=== PATIENT | female | born 2000 | race African-American/Black ===

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

== ENCOUNTER 2022-06-01 09:43 | Emergency (ER) | payer OTHER ==
--- OUTSIDE RECORDS SUMMARY | 2022-06-01 09:46 | XMS REPORT | Continuity of Care Document ---
:2000 Author Organization [facility] t Address [address] [place] [address] Care Team Providers Name Role Phone Jesica Payne PA-C Primary Care Physician [phone] Bette TURBINE ENGINEER, Lesly Ojeda Attending Clinician Payers Payer Name Policy Type Policy Number Effective Date Expiration Date S ource [place]ICA[place] [id number] 2019 00:00:00 Problems Condition Condition Condition Status Onset Resolution Last Treating Co mments Source Name Details Category Date Date Treatment Clinician Date Inhalation Inhalation Disease Active U nivers injury injury 9- ity of 00:00: [address] Pneumonia Pneumonia Disease Active Uni vers 03-25 ity of 00:00: [address] Allergies, Adverse Reactions, Alerts Allergy Allergy Status Severity Reaction(s) Onset Inactive Treating Comm ents Source Name Type Date Date Clinician NO KNOWN Drug Active Univers ALLERGIE Class ity of S [facility] Social History Social Habit Start Date Stop Date Quantity Comments Source Exposure to Not sure University of SARS-CoV-2 [facility] (event) [place] Tobacco use and 2021-03-15 2021-03-15 Current user Univers ity of exposure 00:00:00 00:00:00 [facility] Tobacco Comment 2019-03-25 2019-03-25 patient has vaped Un iversity of 00:00:00 00:00:00 discussed dangers [facility] Sex Assigned At [birth year] Universit y of 00:00:00 00:00:00 [facility] Smoking Status Start Date Stop Date Source Unknown if ever smoked Universit y of [facility] Medications Ordered Filled Start Stop Current Ordering Indication Dosage Frequency Signature Comments Components Source Medication Medication Date Date Medication? Clinician (SIG) Name Name prednisoLON 2018-07- No [id number] Take 3 Univers E 5 mg 0-03 09-05 tablets by [place] tablet [place] 04/11/19, Branch Take 2 tablets by mouth once daily on 04/12/19, Take 1 tablet by mouth once daily on 04/13/19 prednisoLON 2018-07- No [id number] Take 3 Univers E 5 mg 0-03 09-05 tablets by [place] tablet [place] 04/11/19, Branch Take 2 tablets by mouth once daily on 04/12/19, Take 1 tablet by mouth once daily on 04/13/19 predniSONE 2020- No [id number] 30mg Take 3 Univers 10 mg 04-06 09-05 tablets by ity of tablet 00:00: 00:00 mouth [place] 00 :00 daily. Medical From [place] 04/06/19 to 04/10/19 predniSONE 2020- No [id number] 30mg Take 3 Univers 10 mg 04-06 09-05 tablets by ity of tablet 00:00: 00:00 mouth [place] 00 :00 daily. Medical From [place] 04/06/19 to 04/10/19 albuterol Yes [id number] 2{puff} Inhale 2 Univers (PROAIR 9-24 Puffs ity of HFA) 90 00:00: every 6 [place] mcg/actuati 00 (six) Medical on inhaler hours as Branc h needed for Wheezing or Shortness of Breath. albuterol Yes [id number] 2{puff} Inhale 2 Univers (PROAIR 9-24 Puffs ity of HFA) 90 00:00: every 6 [place] mcg/actuati 00 (six) Medical on inhaler hours as Branc h needed for Wheezing or Shortness of Breath. predniSONE 2020- No [id number] 40mg Take 2 Univers 20 mg 9 09-05 tablets by ity of tablet 00:00: 00:00 mouth [place] 00 :00 daily. Medical From [place] 04/01/19 to 04/05/19 predniSONE 2018-2020- No [id number] 40mg Take 2 Univers 20 mg 04-01-05 tablets by ity of tablet 00:00: 00:00 mouth [place] 00 :00 daily. Medical From Branch 04/01/19 to 04/05/19 cefdinir 2018-2020- No [id number] 600mg Take 2 Univers 300 mg 03-31-05 capsules ity of capsule 00:00: 00:00 by mouth [place] 00 :00 every 24 Medical ([facility] Branch ur) hours. azithromyci 2018-2020- No [id number] 250mg Take 1 Univers n 250 mg 03-31-05 tablet by ity o f tablet 00:00: 00:00 mouth [place] 00 :00 every 24 Medical ([facility] Branch ur) hours. famotidine 2018-2020- No [id number] 20mg Take 1 Univers 20 mg -31 03-05 tablet by ity of tablet 00:00: 00:00 mouth 2 [place] 00 :00 (two) Medical times Branch daily. cefdinir 2020- No [id number] 600mg Take 2 Univers 300 mg 03-31-05 capsules ity of capsule 00:00: 00:00 by mouth [place] 00 :00 every 24 Medical ([facility] Branch ur) hours. azithromyci 2020- No [id number] 250mg Take 1 Univers n 250 mg 03-31-05 tablet by ity o f tablet 00:00: 00:00 mouth [place] 00 :00 every 24 Medical ([facility] Branch ur) hours. famotidine 2020- No [id number] 20mg Take 1 Univers 20 mg -21 -05 tablet by ity of tablet 00:00: 00:00 mouth 2 [place] 00 :00 (two) Medical times Branch daily. Immunizations Ordered Filled Immunization Date Status Comments [facility] e Immunization Name Name Pneumococcal 7 2003-09-06 Completed University of Conjugate, PCV7 00:00:00 [place] [facility] ical (Prevnar7) Branch Pneumococcal 7 2003-09-06 Completed University of Conjugate, PCV7 00:00:00 [place] Med ical (Prevnar7) Branch Vital Signs Vital Name Observation Time Observation Value Comments Source Systolic blood 2021-03-15 17:40:00 122 mm[Hg] Univer sity of pressure [facility] Diastolic blood 2021-03-15 17:40:00 79 mm[Hg] Unive rsity of pressure [facility] Heart rate 2021-03-15 17:40:00 66 /min [facility] Respiratory rate 2021-03-15 17:40:00 18 /min [facility] saturation in 2021-03-15 17:40:00 98 /min [facility] Arterial blood by [facility] Pulse oximetry Branch Body temperature 2021-03-15 15:58:00 37.33 Nancy [facility] Body weight 2021-03-15 15:58:00 120.203 kg [facility] Procedures Procedure Date / Time Performed Performing Clinician [facility] e NOTICE OF PRIVACY 2021-03-15 15:58:56 Doctor Unassigned, No Univ [facility] PRACTICES Name Medical Branch CONSENT/REFUSAL FOR 2021-03-15 15:49:31 Doctor Unassigned, [facility] AND Name Medical Branch TREATMENT Encounters Start End Encounter Admission Attending Care Care Encounter Source Date/Time Date/Time Type Type Clinicians Facility Department ID 2021-05-11 Emergency [facility] [id number] Univers 20:33:12 ity of [facility] 2021-03-15 2021-03-15 Emergency [facility] [id number] Univers 11:00:00 13:20:00 Lesly Graham [id number] [place] [id number] [facility] [id number] [facility] 084 Branch Results This patient has no known results.
[2022-06-01] MEDS ORDERED: ALBUTEROL 2.5 MG/3 ML NEB SOL ONE (09:55)
[2022-06-01] MEDS ORDERED: IPRATROPIUM BROM 0.5MG/2.5ML ONE (09:55)
[2022-06-01 10:42] LABS: SARS-COV-2 RT PCR NEGATIVE (NEGATIVE)
--- NOTE | 2022-06-01 11:02 | RAD REPORT ---
EXAM DESCRIPTION: Orly Lennon (2 Views)06/01/2022 10:16 am CLINICAL HISTORY: Cough COMPARISON: None FINDINGS: The lungs appear clear of acute infiltrate. The heart is normal size IMPRESSION: No acute abnormalities displayed
--- NOTE | 2022-06-01 11:19 | ER ---
Nurse's Notes [facility] Name: Saida Vo Age: 21 yrs Sex: Female : 2000 Arrival Date: 06/01/2022 Time: 09:46 Bed 11 Private MD: Diagnosis: Acute bronchitis, unspecified Presentation: 06/01 10:08 Chief complaint: Patient states: 2 days of fever, cough, congestion, no taste or smell, iw + body aches. Coronavirus screen: Client presents with at least one sign or symptom that may indicate coronavirus-19. Ebola Screen: Patient negative for fever greater than or equal to 101.5 degrees Fahrenheit, and additional compatible Ebola Virus Disease symptoms Patient denies exposure to infectious person. Patient denies travel to an Ebola-affected area in the 21 days before illness onset. No symptoms or risks identified at this time. Initial Sepsis Screen: Does the patient meet any 2 criteria? No. Patient's initial sepsis screen is negative. Does the patient have a suspected source of infection? No. Patient's initial sepsis screen is negative. Risk Assessment: Do you want to hurt yourself or someone else? Patient reports no desire to harm self or others. Onset of symptoms was May 30, 2022. 10:08 Method Of Arrival: Ambulatory iw 10:08 Acuity: YESENIA 4 iw Historical: - Allergies: 10:10 No Known Allergies; iw - PMHx: 10:10 Asthma; iw Vital Signs: 10:08 BP 130 / 94; Pulse 89; Resp 16; Temp 97.1; Pulse Ox 99% on R/A; Weight 94.35 kg; Height iw 5 ft. 1 in. (154.94 cm); 10:08 Body Mass Index 39.30 (94.35 kg, 154.94 cm) iw ED Course: 09:46 Patient arrived in ED. as 09:46 [facility] kb 09:46 Teja Houston MD is Attending Physician. kb 09:53 Nancy Thurman, RN is Primary Nurse. iw 10:00 COVID-19/FLU A+B Sent. iw 10:10 Triage completed. iw 10:10 Arm band placed on. iw 10:18 Chest Pa And Lat (2 Views) XRAY In Process Unspecified. EDMS Administered Medications: 10:22 Drug: DuoNeb (albuterol 2.5 mg, ipratropium 0.5 mg) (3:1) (2.5 mg - 0.5 mg) 3 ml Route: iw Nebulizer; 11:37 Drug: predniSONE 40 mg Route: PO; iw Outcome: 11:19 Discharge ordered by MD. jackson 11:37 Patient left the ED. iw Signatures: Dispatcher [employer] EDMS Sanna Asif, Guillermina Garcia Irene, RN RN iw
--- NOTE | 2022-06-01 11:19 | EDPHYS ---
Physician Documentation [facility] Name: Saida Vo Age: 21 yrs Sex: Female : 2000 Arrival Date: 06/01/2022 Time: 09:46 Bed 11 Private MD: ED Physician Teja Houston HPI: 06/01 11:18 This 21 yrs old Black Female presents to ER via Ambulatory with complaints of Flu kb Symptoms. 11:18 The patient or guardian reports cough, that is intermittent, described as mild, flu kb symptoms, low-grade fever, myalgias. Onset: The symptoms/episode began/occurred 2 day(s) ago. Severity of symptoms: At their worst the symptoms were moderate, in the emergency department the symptoms are unchanged. Modifying factors: The symptoms are alleviated by nothing, the symptoms are aggravated by nothing. Associated signs and symptoms: Pertinent positives: fever, rhinorrhea. The patient has experienced similar episodes in the past, a few times. The patient has not recently seen a physician. Historical: - Allergies: 10:10 No Known Allergies; iw - PMHx: 10:10 Asthma; iw ROS: 11:18 Abdomen/GI: Negative for abdominal pain, nausea, vomiting, diarrhea, and constipation. kb 11:18 Constitutional: Positive for body aches, chills, fever, malaise. 11:18 ENT: Positive for rhinorrhea, sinus congestion. 11:18 Respiratory: Positive for cough. 11:18 All other systems are negative. Exam: 11:18 Constitutional: This is a well developed, well nourished patient who is awake, alert, kb and in no acute distress. Head/Face: Normocephalic, atraumatic. ENT: Moist Mucous membranes Cardiovascular: Regular rate and rhythm with a normal S1 and S2. No gallops, murmurs, or rubs. No pulse deficits. Abdomen/GI: Soft, non-tender. No distention Skin: Warm, dry with normal turgor. Normal color. MS/ Extremity: Pulses equal, no cyanosis. Neurovascular intact. Full, normal range of motion. Neuro: Awake and alert, GCS 15, oriented to person, place, time, and situation. Moves all extremities. Normal gait. 11:18 Respiratory: the patient does not display signs of respiratory distress, Respirations: normal, Breath sounds: wheezing: expiratory that is mild, is heard in the right posterior middle lobe and right posterior lower lobe. Vital Signs: 10:08 BP 130 / 94; Pulse 89; Resp 16; Temp 97.1; Pulse Ox 99% on R/A; Weight 94.35 kg; Height iw 5 ft. 1 in. (154.94 cm); 10:08 Body Mass Index 39.30 (94.35 kg, 154.94 cm) iw MDM: 09:52 Patient medically screened. kb 11:04 Data reviewed: vital signs, nurses notes. Data interpreted: Pulse oximetry: on room air kb is 99 %. Interpretation: normal. Counseling: I had a detailed discussion with the patient and/or guardian regarding: the historical points, exam findings, and any diagnostic results supporting the discharge/admit diagnosis, lab results, radiology results, the need for outpatient follow up, a family practitioner, to return to the emergency department if symptoms worsen or persist or if there are any questions or concerns that arise at home. 06/01 09:52 Order name: COVID-19/FLU A+B; Complete Time: 10:48 kb 06/01 09:52 Order name: Chest Pa And Lat (2 Views) XRAY; Complete Time: 11:03 kb Administered Medications: 10:22 Drug: DuoNeb (albuterol 2.5 mg, ipratropium 0.5 mg) (3:1) (2.5 mg - 0.5 mg) 3 ml Route: iw Nebulizer; 11:37 Drug: predniSONE 40 mg Route: PO; iw Disposition: 16:54 Co-signature as Attending Physician, Teja Houston MD I agree with the assessment and rt plan of care. Disposition Summary: 06/01/22 11:19 Discharge Ordered Location: Home kb Condition: Stable kb Diagnosis - Acute bronchitis, unspecified kb Followup: kb - With: Emergency Department - When: As needed - Reason: Worsening of condition Followup: kb - With: Private Physician - When: 2 - 3 days - Reason: Recheck today's complaints, Continuance of care, Re-evaluation by your physician Discharge Instructions: - Discharge Summary Sheet kb - Acute Bronchitis, Adult, [id number] kb Forms: - Medication Reconciliation Form kb - Work release form kb - Thank You Letter kb - Antibiotic Education kb - Prescription Opioid Use kb Prescriptions: - albuterol sulfate 90 mcg/actuation Inhalation HFA aerosol inhaler - inhale 2 puff by INHALATION route every 4-6 hours As needed; 1 Inhaler; kb Refills: 0, Product Selection Permitted - Prednisone 20 mg Oral Tablet - take 1 tablet by ORAL route once daily for 5 days; 5 tablet; Refills: 0, kb Product Selection Permitted Signatures: Dispatcher [employer] Sanna Rosado, Nancy Blake RN RN Teja Quevedo MD MD rt
[2022-06-01] MEDS ORDERED: predniSONE 20 MG TAB ONE (11:30)
[2022-06-01 12:09] VITALS: BP 130/94; TEMP 97.1; O2SAT 99
== END 2022-06-01 11:37 | disposition home or self-care (01) ==
LOC: ER 09:43
DX: J20.9 Acute bronchitis, unspecified (principal); Z20.822 Contact with and (suspected) exposure to COVID-19
CPT/HCPCS: 0240U; 71046; 94640; 99284; J7512; J7613; J7644

== ENCOUNTER 2022-09-22 10:32 | Emergency (ER) | payer OTHER ==
--- OUTSIDE RECORDS SUMMARY | 2022-09-22 10:37 | XMS REPORT | Continuity of Care Document ---
:2000 Author Organization [facility] t Address [address] [place] [address] Care Team Providers Name Role Phone Jesica Payne PA-C Primary Care Physician [phone] Lesly Amos NP Attending Clinician Payers Payer Name Policy Type Policy Number Effective Date Expiration Date S ource [place] [id number] 2019 00:00:00 Problems Condition Condition Condition Status Onset Resolution Last Treating Co mments Source Name Details Category Date Date Treatment Clinician Date Inhalation Inhalation Disease Active 2018- U nivers injury injury 9-19 ity of 00:00: [address] Pneumonia Pneumonia Disease Active 2019 Uni vers 03-25 ity of 00:00: [address] Allergies, Adverse Reactions, Alerts Allergy Allergy Status Severity Reaction(s) Onset Inactive Treating Comm ents Source Name Type Date Date Clinician NO KNOWN Drug Active Univers ALLERGIE Class ity of S [facility] Social History Social Habit Start Date Stop Date Quantity Comments Source Exposure to Not sure University of SARS-CoV-2 [facility] (event) [place] Tobacco use and 2021-03-15 2021-03-15 Current user Univers ity of exposure 00:00:00 00:00:00 [facility] Tobacco Comment 2019-03-25 2019-03-25 patient has vaped Un iversity of 00:00:00 00:00:00 discussed dangers [facility] Sex Assigned At [birth year] Universit y of 00:00:00 00:00:00 [facility] Smoking Status Start Date Stop Date Source Unknown if ever smoked Universit y of [facility] Medications Ordered Filled Start Stop Current Ordering Indication Dosage Frequency Signature Comments Components Source Medication Medication Date Date Medication? Clinician (SIG) Name Name prednisoLON 2018-07- No [id number] Take 3 Univers E 5 mg 0-03 09-05 tablets [place] tablet [place] 04/11/19, Branch Take 2 tablets by mouth once daily on 04/12/19, Take 1 tablet by mouth once daily on 04/13/19 prednisoLON 2018-07- No [id number] Take 3 Univers E 5 mg 0-03 09-05 tablets by [place] tablet 00:[place] 04/11/19, Branch Take 2 tablets by mouth once daily on 04/12/19, Take 1 tablet by mouth once daily on 04/13/19 predniSONE 2020- No [id number] 30mg Take 3 Univers 10 mg 9- 09-05 tablets by ity of tablet 00:00: 00:00 mouth [place] 00 :00 daily. Medical From [place] 04/06/19 to 04/10/19 predniSONE 2020- No [id number] 30mg Take 3 Univers 10 mg 9- 09-05 tablets by ity of tablet 00:00: 00:00 mouth [place] 00 :00 daily. Medical From [place] 04/06/19 to 04/10/19 albuterol Yes [id number] 2{puff} Inhale 2 Univers (PROAIR 9-24 Puffs ity of HFA) 90 00:00: every 6 [place] mcg/actuati 00 (six) Medical on inhaler hours as Branc h needed for Wheezing or Shortness of Breath. albuterol Yes [id number] 2{puff} Inhale 2 Univers (PROAIR 9-24 Puffs ity of HFA) 90 00:00: every 6 [place] mcg/actuati 00 (six) Medical on inhaler hours as Branc h needed for Wheezing or Shortness of Breath. predniSONE 2020- No [id number] 40mg Take 2 Univers 20 mg 9 09-05 tablets by ity of tablet 00:00: 00:00 mouth [place] 00 :00 daily. Medical From Branch 04/01/19 to 04/05/19 predniSONE 2018-2020- No [id number] 40mg Take 2 Univers 20 mg 04-01-05 tablets by ity of tablet 00:00: 00:00 mouth [place] 00 :00 daily. Medical From Branch 04/01/19 to 04/05/19 cefdinir 2018-2020- No [id number] 600mg Take 2 Univers 300 mg -31 03-05 capsules ity of capsule 00:00: 00:00 by mouth [place] 00 :00 every 24 Medical ([facility] Branch ur) hours. azithromyci 2018-2020- No [id number] 250mg Take 1 Univers n 250 mg -31 03-05 tablet by ity o f tablet 00:00: 00:00 mouth [place] 00 :00 every 24 Medical ([facility] Branch ur) hours. famotidine 2018-2020- No [id number] 20mg Take 1 Univers 20 mg -31 03-05 tablet by ity of tablet 00:00: 00:00 mouth 2 [place] 00 :00 (two) Medical times Branch daily. cefdinir 2018-2020- No [id number] 600mg Take 2 Univers 300 mg 03-31-05 capsules ity of capsule 00:00: 00:00 by mouth [place] 00 :00 every 24 Medical ([facility] Branch ur) hours. azithromyci 2018-2020- No [id number] 250mg Take 1 Univers n 250 mg 03-31-05 tablet by ity o f tablet 00:00: 00:00 mouth [place] 00 :00 every 24 Medical ([facility] Branch ur) hours. famotidine 2018-2020- No [id number] 20mg Take 1 Univers 20 mg -21 -05 tablet by ity of tablet 00:00: 00:00 mouth 2 [place] 00 :00 (two) Medical times Branch daily. Immunizations Ordered Filled Immunization Date Status Comments [facility] e Immunization Name Name Pneumococcal 7 2003-09-06 Completed University of Conjugate, PCV7 00:00:00 [place] [facility] (Prevnar7) Branch Pneumococcal 7 2003-09-06 Completed University of Conjugate, PCV7 00:00:00 [place] [facility] ical (Prevnar7) Branch Vital Signs Vital Name Observation Time Observation Value Comments Source Systolic blood 2021-03-15 17:40:00 122 mm[Hg] Univer sity of pressure [facility] Diastolic blood 2021-03-15 17:40:00 79 mm[Hg] Unive rsity of pressure [facility] Heart rate 2021-03-15 17:40:00 66 /min [facility] Respiratory rate 2021-03-15 17:40:00 18 /[facility] in 2021-03-15 17:40:00 98 /min [facility] Arterial blood by [facility] Pulse oximetry Branch Body temperature 2021-03-15 15:58:00 37.33 Nancy [facility] Body weight 2021-03-15 15:58:00 120.203 kg [facility] Procedures Procedure Date / Time Performed Performing Clinician Sour e NOTICE OF PRIVACY 2021-03-15 15:58:56 Doctor Un[facility]igned, No [facility] Name Medical Branch CONSENT/REFUSAL FOR 2021-03-15 15:49:31 [facility] Un[facility]igned, No [facility] DI[facility]NOSIS AND Name Medical Branch TREATMENT Encounters Start End Encounter Admission Attending Care Care Encounter Source Date/Time Date/Time Type Type Clinicians Facility Department ID 2021-05-11 Emergency [facility] [id number] Univers 20:33:12 ity of [facility] 2021-03-15 2021-03-15 Emergency [facility] [id number] Univers 11:00:00 13:20:00 Lesly Graham [id number] ity serina Penny [id number] [facility] [id number] [facility] 084 Branch Results This patient has no known results.
[2022-09-22 11:41] LABS: Urine Blood Negative (Negative); Urine Glucose Negative (Negative); Urine Protein 2+ (Negative); Urine Specific Gravity >=1.030 (1.005-1.030); Urine pH 5.5 (5.0-7.0)
[2022-09-22 12:06] LABS: Absolute Lymphocytes (CBC) 1.9 K/uL (0.7-4.9); Hematocrit 41.8 % (36.0-45.0); MCV 90.3 fL (80-100); MPV 9.1 fL (7.6-11.3); RBC Red Blood Cell Count 4.64 M/uL (3.86-4.86)
[2022-09-22 12:20] LABS: Urine Specific Gravity/Preg >1.030 (1.005-1.030)
[2022-09-22 12:23] LABS: Albumin 4.3 g/dL (3.4-5.0); Bilirubin Total 0.5 mg/dL (0.2-1.0); Potassium 3.8 mmol/L (3.5-5.1); Protein, Total 7.8 g/dL (6.4-8.2)
[2022-09-22] MEDS ORDERED: NA CHLORIDE 0.9% 1,000 ML ONE (12:33)
[2022-09-22] MEDS ORDERED: ONDANSETRON 4 MG/2 ML VIAL ONE (12:33)
--- NOTE | 2022-09-22 12:47 | RAD REPORT ---
EXAM DESCRIPTION: US - 1St Trimest Single 1St Fetus - 09/22/2022 12:21 pm CLINICAL HISTORY: vomiting, pelvic pain COMPARISON: No comparisons TECHNIQUE: Sonographic grayscale and color flow images of a first-trimester were obtained through a transabdominal approach approach. FINDINGS: A single live intrauterine is identified. heart rate: 132 beats per minute. [place]-rump length measures millimeters, corresponding to gestational age of 6 weeks, 4 days. Normal yolk sac is visualized. Maternal ovaries are unremarkable, the right measuring 3.5 x 2.1 x 2.5 centimeter, and the left measu ring 4.1 x 2.8 x 3.5 centimeter. Dominant right ovarian cyst or follicle measuring 2.6 centimeter. No free fluid. IMPRESSION: 1. Single live intrauterine . 2. Calculated gestational age: 6 weeks, 4 days. Estimated due date by ultrasound: 05/14/2023.
--- NOTE | 2022-09-22 13:10 | EDPHYS ---
Physician Documentation [facility] Name: Saida Vo Age: 21 yrs Sex: Female : 2000 Arrival Date: 09/22/2022 Time: 10:36 Bed 9 Private MD: ED Physician Indio Mullen HPI: 09/22 11:24 This 21 yrs old Black Female presents to ER via Ambulatory with complaints of Vomiting. jmm 11:24 The patient presents to the emergency department with nausea, vomiting, abdominal pain. jmm Onset: The symptoms/episode began/occurred gradually, 3 day(s) ago. Is a 21-year-old female with history of asthma the presents emerged part with complaints of nausea and vomiting beginning approximately 3 days ago. Denies any recent antibiotics or infectious exposure. Patient states she is late on her cycle.. 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 - Social history:: Smoking status: Patient denies any tobacco usage or history of. ROS: 11:24 Constitutional: Negative for fever, chills, and weight loss, Cardiovascular: Negative jmm for chest pain, palpitations, and edema, Respiratory: Negative for shortness of breath, cough, wheezing, and pleuritic chest pain. 11:24 Abdomen/GI: Positive for vomiting. 11:24 All other systems are negative. Exam: 11:24 Constitutional: This is a well developed, well nourished patient who is awake, alert, jmm and in no acute distress. Head/Face: atraumatic. Eyes: EOMI, no conjunctival erythema appreciated ENT: Moist Mucus Membranes Neck: Trachea midline, Supple Chest/axilla: Normal chest wall appearance and motion. Cardiovascular: Regular rate and rhythm. No edema appreciated Respiratory: Normal respirations, no respiratory distress appreciated 11:24 Back: Normal ROM Skin: General appearance color normal MS/ Extremity: Moves all extremities, no obvious deformities appreciated, no edema noted to the lower extremities Neuro: Awake and alert Psych: Behavior is normal, Mood is normal, Patient is cooperative and pleasant 11:24 Abdomen/GI: Inspection: abdomen appears normal, Palpation: abdomen is soft and non-tender. Vital Signs: 10:58 BP 123 / 79; Pulse 82; Resp 18 S; Temp 98.2(TE); Pulse Ox 100% on R/A; Weight 84.37 kg aa5 (R); Height 5 ft. 7 in. (R); 10:58 Body Mass Index 29.13 (84.37 kg, 170.18 cm) aa5 MDM: 11:24 Patient medically screened. [facility] 13:07 Differential diagnosis: Nonspecific abd pain, gastroenteritis, Hyperemesis, . [facility] Data reviewed: vital signs, nurses notes. I considered the following discharge prescriptions or medication management in the emergency department Medications were administered in the Emergency Department. See MAR. Counseling: I had a detailed discussion with the patient and/or guardian regarding: the historical points, exam findings, and any diagnostic results supporting the discharge/admit diagnosis, lab results, radiology results, the need for outpatient follow up, to return to the emergency department if symptoms worsen or persist or if there are any questions or concerns that arise at home. ED course: Patient states feeling much better. Ultrasound did reveal IUP. Abdomen is soft. I do not currently suspect an acute intra-abdominal process. Patient advised to follow-up with CHIEF COMPLIANCE OFFICER for further evaluation otherwise given strict return precautions. Patient understood and agrees plan of care.. 09/22 11:26 Order name: CBC with Diff; Complete Time: 12:20 [facility] 09/22 11:26 Order name: CMP; Complete Time: 12:28 [facility] 09/22 11:26 Order name: Lipase; Complete Time: 12:28 [facility] 09/22 11:26 Order name: IV Saline Lock; Complete Time: 11:53 [facility] 09/22 11:26 Order name: Labs collected and sent; Complete Time: 11:53 [facility] 09/22 11:26 Order name: Urine Dipstick-Ancillary (obtain specimen); Complete Time: 11:41 [facility] 09/22 11:26 Order name: Urine Test (obtain specimen); Complete Time: 11:41 [facility] 09/22 11:45 Order name: Urine --Ancillary (enter results); Complete Time: 12:21 09/22 11:41 Order name: HCG-Quantitative; Complete Time: 13:00 [facility] 09/22 11:41 Order name: US 1st Trimest Single 1st Fetus; Complete Time: 13:00 [facility] 09/22 11:42 Order name: Urine Dipstick-Ancillary; Complete Time: 11:43 EDMS Administered Medications: 12:31 Drug: NS 0.9% IV 1000 ml Route: IV; Rate: 1 bolus; Site: right antecubital; aa5 12:31 Drug: Ondansetron IVP 4 mg Route: IVP; Site: right antecubital; aa5 Disposition Summary: 09/22/22 13:09 Discharge Ordered Location: Home jm Condition: Stable [facility] Diagnosis - Vomiting [facility] - Vomiting of , unspecified [facility] Followup: [facility] - With: Private Physician - When: 2 - 3 days - Reason: Recheck today's complaints, Continuance of care, Re-evaluation by your physician Forms: - Medication Reconciliation Form [facility] - Thank You Letter julio - Antibiotic Education charli - Prescription Opioid Use [facility] Signatures: Dispatcher [employer] EDDeyvi Valdez PA PA jmm Calderon, Audri, RN RN aa5
--- NOTE | 2022-09-22 13:10 | ER ---
Nurse's Notes [facility] Name: Saida Vo Age: 21 yrs Sex: Female : 2000 Arrival Date: 09/22/2022 Time: 10:36 Bed 9 Private MD: Diagnosis: Vomiting;Vomiting of , unspecified Presentation: 09/22 10:58 Chief complaint: Patient states: 'I've been throwing up for 3 days now and I can't keep aa5 anything down". Pt c/o abd pain. Coronavirus screen: vomiting. Ebola Screen: Patient denies travel to an Ebola-affected area in the 21 days before illness onset. Initial Sepsis Screen: Does the patient meet any 2 criteria? No. Patient's initial sepsis screen is negative. Does the patient have a suspected source of infection? No. Patient's initial sepsis screen is negative. Risk Assessment: Do you want to hurt yourself or someone else? Patient reports no desire to harm self or others. Onset of symptoms was September 2022. 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 - Social history:: Smoking status: Patient denies any tobacco usage or history of. Assessment: 12:30 Reassessment: Patient is alert, oriented x 3, equal unlabored respirations, skin aa5 warm/dry/pink. Vital Signs: 10:58 BP 123 / 79; Pulse 82; Resp 18 S; Temp 98.2(TE); Pulse Ox 100% on R/A; Weight 84.37 kg aa5 (R); Height 5 ft. 7 in. (R); 10:58 Body Mass Index 29.13 (84.37 kg, 170.18 cm) aa5 ED Course: 10:36 Patient arrived in ED. rg4 10:41 Deyvi Blancas PA is PHCP. charlim 10:41 Indio Mullen MD is Attending Physician. [facility] 10:58 Triage completed. aa5 10:58 Arm band placed on. aa5 11:53 HCG-Quantitative Sent. bc6 11:53 CBC with Diff Sent. bc6 11:53 CMP Sent. bc6 11:53 Lipase Sent. bc6 11:53 Initial lab(s) drawn, by me, sent to lab. Inserted saline lock: 20 gauge in left 6 antecubital area, using aseptic technique. 12:22 1st Trimest Single 1st Fetus In Process Unspecified. EDMS Administered Medications: 12:31 Drug: NS 0.9% IV 1000 ml Route: IV; Rate: 1 bolus; Site: right antecubital; aa5 12:31 Drug: Ondansetron IVP 4 mg Route: IVP; Site: right antecubital; aa5 Outcome: 13:09 Discharge ordered by . julio Signatures: Dispatcher [employer] EDMS Deyvi Blancas PA PA jmm Calderon, Audri, RN RN aa5 Germania Greene 4 Katerin Hurt [facility]
[2022-09-22 18:12] VITALS: BP 123/79; TEMP 98.2; O2SAT 100
== END 2022-09-22 14:17 | disposition home or self-care (01) ==
LOC: ER 10:32
DX: O21.9 Vomiting of pregnancy, unspecified (principal); Z3A.01 Less than 8 weeks gestation of pregnancy
CPT/HCPCS: 85025; 36415; 81025; 84702; 81003; 83690; 80053; 76801; J2405; J7030